=== PATIENT | male | born 1980 | race African-American/Black ===

== ENCOUNTER 2024-07-12 01:25 | Day surgery (SDC) | payer OTHER, SELFPAY ==
[2024-04-03 13:49] VITALS: BMI 31.6
[2024-06-20 09:18] VITALS: BMI 34.0
[2024-07-12 07:55] VITALS: BP 136/83; PULSE 66; RESP 18; TEMP 35.6; O2SAT 99; BMI 35.4
[2024-07-12] MEDS: LACTATED RINGERS 1,000 ML 150 ML IV CONT (08:03)
--- NOTE | 2024-07-12 08:25 | P.PNAN_ITS ---
Anes - Initial Pre Proc Eval Procedure: Operation Date: 07/12/24 09:00 Proposed Procedures p Screening Colonoscopy - Franck Hollingsworth MD Date/Time: 07/12/24 08:25 Surgeon: Franck Hollingsworth MD Pre Op Diagnosis: Neoplasm screening Patient Data Age: 44 Gender: M Height: 1.75 m Weight: 108.8 kg Last Vital Signs Temp 35.6 C L 07/12/24 07:55 Pulse 66 07/12/24 07:55 Resp 18 07/12/24 07:55 BP 136/83 07/12/24 07:55 Pulse Ox 99 07/12/24 07:55 O2 Del Method Room Air 07/12/24 07:55 Allergies Allergy/AdvReac Type Severity Reaction Status Date / Time No Known Allergies Allergy Verified 07/12/24 07:51 Home Medications ?Medication ?Instructions ?Recorded ?Confirmed ?Type amlodipine 2.5 mg tablet 2.5 mg PO DAILY 04/03/24 07/12/24 History Patient hx anesthesia problems: none Family hx anesthesia problems: none Results Review: All pre-operative results and documents have been reviewed as part of the pre- operative evaluation. [facility] Past Medical History Medical History (Updated 07/12/24 @ 08:26 by Jose Gomes MD) LUCY on CPAP Obesity Surgical History Surgical History (Updated 07/12/24 @ 08:28 by Jose Gomes MD) H/O umbilical hernia repair Social History Social History Smoking status: Never smoker Alcohol intake: never Substance use: never Substance use type: does not use Living arrangements: with family Spiritual care concerns: No Anes - Eval Final PreProcedure Day of Procedure 07/12/24 08:25 Patient weight: obese Heart: regular rate and rhythm Lungs: clear to auscultation Airway: Mallampati scale class 1 Neurological: alert and oriented Last oral intake: >/= 8 hours ASA classification: III Emergent: no Anesthetic plan: proceed Anesthesia type and monitoring: general GIVS and standard monitoring Results Review: All pre-operative results and documents have been reviewed as part of the pre- operative evaluation. Informed Consent: The patient's anesthetic plan and its attendant risks and benefits were discussed with the patient/family/POA. Questions were solicited and answers provided to the satisfaction of the patient/family/POA.
--- NOTE | 2024-07-12 08:57 | PM.HPGS ---
History of Present Illness History of Present Illness Consent: Risks, benefits, and alternatives have been discussed and questions answered. Patient agrees to proceed with procedure. Chief complaint: Neoplasm screening Narrative: Kamron Cox is a 44 year old male here for first screening colonoscopy Review of Systems Review of Systems: All systems reviewed & are unremarkable except as noted in HPI and below PMFSH Past Medical History Medical History (Updated 07/12/24 @ 08:58 by Franck Hollingsworth MD) Colon cancer screening LUCY on CPAP Obesity Surgical History Surgical History (Updated 07/12/24 @ 08:28 by Jose Gomes MD) H/O umbilical hernia repair Social History Social History Smoking status: Never smoker Alcohol intake: never Substance use: never Substance use type: does not use Living arrangements: with family Spiritual care concerns: No Meds Home Medications and Allergies Home Medications ?Medication ?Instructions ?Recorded ?Confirmed ?Type amlodipine 2.5 mg tablet 2.5 mg PO DAILY 04/03/24 07/12/24 History Allergies Allergy/AdvReac Type Severity Reaction Status Date / Time No Known Allergies Allergy Verified 07/12/24 07:51 Vital Signs Vital Signs - 24 hr 07/12/24 07:55 Temperature 96.0 F L Pulse Rate 66 Respiratory Rate 18 Blood Pressure 136/83 Pulse Oximetry 99 Oxygen Delivery Room Air Exam Const: General: comfortable and no acute distress HENMT: Face/Nose/Sinus: Normal nares present Eyes: General: appearance normal, both eyes and all related structures Neck: Neck: no JVD Resp: Auscultation: clear to auscultation bilaterally Cardio: Rate: regular rate Rhythm: regular rhythm GI: Inspection: non-distended GI Palp: Yes Soft to palpation Skin: General skin exam: normal color Neuro: General: gait normal Speech: normal speech Extrem: General: normal to inspection Psych: Mental Status: mental status grossly normal Assessment and Plan Assessment and plan (1) Colon cancer screening: Code(s): Z12.11 - Encounter for screening for malignant neoplasm of colon Status: Acute Assessment and Plan: colonoscopy
[2024-07-12 09:10] VITALS: BP 109/73; PULSE 74; RESP 20; O2SAT 100
[2024-07-12 09:20] VITALS: BP 113/77; PULSE 58; RESP 18; O2SAT 100
[2024-07-12 09:30] VITALS: BP 122/77; PULSE 54; RESP 18; O2SAT 100
== END 2024-07-12 09:38 | disposition home or self-care (01) ==
PROVIDERS: PCP Family Medicine; Visit Provider Internal Medicine Gastroenterology
PROC: 0DJD8ZZ Inspection of Lower Intestinal Tract, Via Natural or Artificial Opening Endoscopic (ICD-10-PCS; CPT 45378; principal; 2024-07-12 09:00)
DX: Z12.11 Encounter for screening for malignant neoplasm of colon (principal); K64.8 Other hemorrhoids; G47.33 Obstructive sleep apnea (adult) (pediatric); E66.9 Obesity, unspecified; Z68.35 Body mass index [BMI] 35.0-35.9, adult; Z99.89 Dependence on other enabling machines and devices; Z98.890 Other specified postprocedural states
CPT/HCPCS: 45378; J2704; J7120